=== PATIENT | female | born 2000 | race Hispanic/Latino ===

== ENCOUNTER 2019-10-23 07:04 | Day surgery (SDC) | payer BC, OTHER ==
[2019-10-10 09:18] LABS: BUN/Creatinine Ratio 15; Blood Urea Nitrogen 12 mg/dL (7-17); Calcium 9.3 mg/dL (8.4-10.2); Hemolysis Index 11
--- NOTE | 2019-10-10 14:26 | Cat Scan Report ---
The following report is a radiology over-read of a CT calcium scoring study. CT calcium scoring study is reported separately by Cardiology. CT CALCIUM SCORING OVER-READ TECHNIQUE: Limited CT through the heart and lung bases. All CT scans at this location are performed using CT dos e reduction for ALARA by means of automated exposure control. COMPARISON: None available. FINDINGS: VISUALIZED LUNGS / PLEURA: No significant abnormality. HEART / MEDIASTINUM: No significant abnormality. SKELETAL SYSTEM: No significant abnormality. ADDITIONAL FINDINGS: No significant additional abnormality. IMPRESSION: 1. No significant extracardiac abnormality. Signer Name: Jose Corbin MD Signed: 10/10/2019 2:21 PM Workstation Name: [id number]
[~2019-10-23 07:04] MED LIST: ATROPINE 1 MG/ML VIAL IV ONE; METOPROLOL TARTRATE 100 MG TAB PO ONE; METOPROLOL TARTRATE 5 MG/5 ML INJ IV ONE; METOPROLOL TARTRATE 50 MG TAB ONE; NITROGLYCERIN 0.4 MG TAB SUBL SL ONE
[2019-10-23] MEDS ORDERED: NITROGLYCERIN 0.4 MG TAB SUBL SL NR (07:30)
[2019-10-23] MEDS ORDERED: METOPROLOL TARTRATE 5 MG/5 ML INJ IV NR (07:31)
[2019-10-23] MEDS ORDERED: ATROPINE 1 MG/ML VIAL IV NR (07:33)
[2019-10-23] MEDS ORDERED: METOPROLOL TARTRATE 25 MG TAB PO SCH (09:00)
[2019-10-23] MEDS ORDERED: ATROPINE 0.1% (1 MG/10 ML) CARDIAC SYRINGE ONE (10:21)
[2019-10-23 11:34] VITALS: BP 102/60
[2019-10-23] MEDS ORDERED: METOPROLOL TARTRATE 5 MG/5 ML INJ IV ONE (12:02)
--- NOTE | 2019-10-25 17:02 | CT Calcium Scoring Report ---
Coronary Calcium Score Date of service: 10/25/19 Procedure: High-resolution computed tomographic imaging of the chest was performed on10/23/19 with particular attention paid to the coronary arteries. Images from the examination were analyzed for the presence and extent of coronary artery calcification, using coronary calcium quantification software. The patient tolerated the procedure well and there were no complications. The results of the coronary calcification analysis are provided below. The patient scores are compared with published data related to scores for people of a similar age and the same gender. - Findings Total Agatson Score: 0
== END 2019-10-23 07:05 | disposition home or self-care (01) ==
LOC: CATHLABREC 07:04
PROVIDERS: ATTEND Internal Medicine Cardiovascular Disease
DX: R07.89 Other chest pain (principal); R94.39 Abnormal result of other cardiovascular function study; I10 Essential (primary) hypertension; Z98.890 Other specified postprocedural states; Z83.3 Family history of diabetes mellitus; Z91.040 Latex allergy status; Z79.899 Other long term (current) drug therapy; Z82.5 Family history of asthma and other chronic lower respiratory diseases; Z84.1 Family history of disorders of kidney and ureter; Z82.49 Family history of ischemic heart disease and other diseases of the circulatory system; Z88.8 Allergy status to other drugs, medicaments and biological substances
CPT/HCPCS: 36415; 75571; 75574; 80048; 82565; 84520; J0461; Q9967